=== PATIENT | male | born 1940 | race Caucasian/White ===

== ENCOUNTER 2019-12-17 05:17 | Emergency (ER) | payer MEDICARE, MEDICAID ==
--- NOTE | 2019-12-17 06:38 | EDM.PDOC ---
ED HPI GENERAL MEDICAL PROBLEM - General Chief Complaint: General Stated Complaint: FELL HITTING HEAD Time Seen by Provider: 12/17/19 06:25 Source of Information: Reports: Patient, Old Records, RN History Limitations: Reports: No Limitations - History of Present Illness INITIAL COMMENTS - FREE TEXT/NARRATIVE: 79 yo male fell out of his wheelchair at the [facility] this morning and was sent for evaluation. Sy has some mild tenderness to the top of his head only. No neck or extremity pain. Is not on anticoagulants. No bleeding since the fall. Onset: Today, Sudden Onset Date: 12/17/19 Onset Time: 04:45 Duration: Minutes:, Improving Location: Reports: Head Quality: Reports: Dull Severity: Mild Improves with: Reports: Other (time) Worsens with: Reports: None Context: Reports: Trauma Associated Symptoms: Reports: No Other Symptoms Treatments [employer]: Reports: Other (see below) (none) denies Pain Score (Numeric/FACES): 0 - Related Data Allergies Allergy/AdvReac Type Severity Reaction Status Date / Time No Known Allergies Allergy Verified 12/17/19 05:23 Home Meds: Home Meds Cholecalciferol (Vitamin D3) [Vitamin D3] 2,000 unit PO DAILY 12/17/19 [History] Doxazosin Mesylate [Cardura] 8 mg PO DAILY 12/17/19 [History] Lovastatin 40 mg PO DAILY 12/17/19 [History] Omeprazole 20 mg PO DAILY 12/17/19 [History] Oxybutynin Chloride [Ditropan Xl] 10 mg PO DAILY 12/17/19 [History] Ranitidine HCl [Ranitidine] 150 mg PO DAILY 12/17/19 [History] Sotalol [Betapace, Sorine] 80 mg PO BID 12/17/19 [History] Valsartan 320 mg PO DAILY 12/17/19 [History] Venlafaxine [Effexor XR] 150 mg PO DAILY 12/17/19 [History] hydroCHLOROthiazide [Hydrochlorothiazide] 25 mg PO DAILY 12/17/19 [History] Past Medical History HEENT History: Reports: Hard of Hearing Cardiovascular History: Reports: Afib, High Cholesterol, Hypertension, Other ( See Below) Other Cardiovascular History: atrial flutter Respiratory History: Reports: COPD, Sleep Apnea, Other (See Below) Other Respiratory History: emphysema Gastrointestinal History: Reports: Other (See Below) Other Gastrointestinal History: barrrett esophagus Genitourinary History: Reports: Prostate Disorder Neurological History: Reports: Other (See Below) Other Neuro History: convulsions Psychiatric History: Reports: Depression Endocrine/Metabolic History: Reports: Diabetes, Type II, Obesity/BMI 30+, Other (See Below) Other Endocrine/Metabolic History: ataxia Hematologic History: Reports: Anemia Oncologic (Cancer) History: Reports: Prostate - Infectious Disease History Infectious Disease History: Reports: Chicken Pox - Past Surgical History Cardiovascular Surgical History: Reports: Pacer Social & Family History - Tobacco Use Smoking Status *Q: Former Smoker Years of Tobacco use: 45 Packs/Tins Daily: 1 Used Tobacco, but Quit: Yes Month/Year Tobacco Last Used: 2006 Second Hand Smoke Exposure: No - Caffeine Use Caffeine Use: Reports: Coffee, Soda - Recreational Drug Use Recreational Drug Use: No ED ROS GENERAL - Review of Systems Review Of Systems: See Below Constitutional: Reports: No Symptoms HEENT: Reports: Other (mild tenderness to the top of his head only.) Respiratory: Reports: No Symptoms Cardiovascular: Reports: No Symptoms Endocrine: Reports: No Symptoms GI/Abdominal: Reports: No Symptoms. Denies: Nausea : Reports: No Symptoms Musculoskeletal: Reports: No Symptoms Skin: Reports: No Symptoms Neurological: Reports: No Symptoms. Denies: Headache Psychiatric: Reports: No Symptoms ED EXAM, GENERAL - Physical Exam Exam: See Below Exam Limited By: No Limitations General Appearance: Alert, WD/WN, No Apparent Distress Eye Exam: Bilateral Eye: Normal Inspection Ears: Normal External Exam, Normal Canal, Hearing Grossly Normal, Normal TMs, Other (significant cerumen build up in both external auditory canals.) Ear Exam: Bilateral Ear: Auricle Normal, Canal Normal, TM normal Nose: Normal Inspection, No Blood Throat/Mouth: Normal Inspection, Normal Lips, Normal Oropharynx, Normal Voice, No Airway Compromise Head: Normocephalic, Other (minimal scalp tenderness to the top of his head without any swelling or wounds. ) Neck: Normal Inspection, Supple, Non-Tender Respiratory/Chest: No Respiratory Distress, Lungs Clear, Normal Breath Sounds, No Accessory Muscle Use Cardiovascular: Regular Rate, Rhythm, No Edema GI/Abdominal: Normal Bowel Sounds, Soft, Non-Tender, No Distention Back Exam: Normal Inspection. No: CVA Tenderness (R), CVA Tenderness (L), Vertebral Tenderness Extremities: Normal Inspection, Normal Range of Motion, Non-Tender, No Pedal Edema Neurological: Alert, Oriented, CN II-XII Intact, Normal Cognition, No Motor/ Sensory Deficits Psychiatric: Normal Affect, Normal Mood Skin Exam: Warm, Dry, Intact, Normal Color, No Rash Course - Vital Signs Last Recorded V/S: Last Vital Signs Temp 36.6 C 12/17/19 05:28 Pulse 72 12/17/19 05:28 Resp 16 12/17/19 05:28 BP 109/48 L 12/17/19 05:28 Pulse Ox 94 L 12/17/19 05:28 Departure - Departure Time of Disposition: 06:42 Disposition: Home, Self-Care 01 Condition: Good Clinical Impression: Fall in elderly patient - Discharge Information *PRESCRIPTION DRUG MONITORING PROGRAM REVIEWED*: No *COPY OF PRESCRIPTION DRUG MONITORING REPORT IN PATIENT MADALYN: No Referrals: PCP,None [Primary Care Provider] - Additional Instructions: Continue usual medications. Recheck as needed. Sepsis Event Note - Evaluation Sepsis Screening Result: No Definite Risk - Focused Exam Vital Signs: Vital Signs Temp Pulse Resp BP Pulse Ox 12/17/19 05:28 36.6 C 72 16 109/48 L 94 L Date Exam was Performed: 12/17/19 Time Exam was Performed: 06:32
== END 2019-12-17 09:51 | disposition home or self-care (01) ==
LOC: JP.ED 05:17
DX: Z04.3 Encounter for examination and observation following other accident (principal); I48.91 Unspecified atrial fibrillation; E78.00 Pure hypercholesterolemia, unspecified; I10 Essential (primary) hypertension; J44.9 Chronic obstructive pulmonary disease, unspecified; F32.9 Major depressive disorder, single episode, unspecified; E11.9 Type 2 diabetes mellitus without complications; E66.9 Obesity, unspecified; Z79.899 Other long term (current) drug therapy; Z87.891 Personal history of nicotine dependence
CPT/HCPCS: 99282; 99283